=== PATIENT | female | born 1945 | race Caucasian/White ===

== ENCOUNTER → 2018-04-10 | Outpatient (CLI) | payer BC, OTHER ==
[~2018-04-10] MED LIST: AMOXICILLIN-CL1 EACH PO; BUPROPION HCL150 M1 PO; CYMBALTA60 MG PO; FOSAMAX 70 MG T70 MG PO; GABAPENTIN 100100 MG PO; MIRALAX17 GM PO; OXYCODONE HCL 55 MG PO
[2018-04-10 09:58] VITALS: BP 106/65
== END ==
LOC: SEN 09:54
DX: R29.6 Repeated falls (principal); G89.29 Other chronic pain; M19.90 Unspecified osteoarthritis, unspecified site; Z79.899 Other long term (current) drug therapy

== ENCOUNTER → 2018-05-03 | Outpatient (CLI) | payer BC, OTHER ==
[2018-05-03 09:10] VITALS: BP 119/63
== END ==
LOC: SEN 08:52
DX: S32.000D Wedge compression fracture of unspecified lumbar vertebra, subsequent encounter for fracture with routine healing (principal); R29.6 Repeated falls; X58.XXXD Exposure to other specified factors, subsequent encounter